=== PATIENT | female | born 1975 | race Caucasian/White ===

== ENCOUNTER 2016-12-16 06:21 | Emergency (ER) | payer OTHER ==
--- NOTE | ~2016-12-16 | CR230 ---
[facility] A Service of [facility] & [facility] RADIOLOGY TEXT RESULTS PATIENT: DARRICK MACARIO LOCATION: [facility] : 75 UNIT #: [id number] AGE: [address]: ELLIOT CAMACHO SEX: F ORDER DR: [id number] [facility] [address] [place], [place] [address] [id number] E MR#: [id number] Acc #: [id number] NAME: DARRICK MACARIO : 1975 SEX: F STUDY DATE/TIME: 12/16/2016 6:11 UNIT: [facility] ROOM: STUDY DESCRIPTION: CR Shoulder Min 2 View Rt Attending Physician: Elliot Camacho Aprn Ordering Physician: Elliot Camacho Aprn Primary Care Physician: No Primary Care Physician MEDICAL IMAGING REPORT This report is preliminary unless electronic signature is present EXAM Right shoulder, 12/16/2016 HISTORY Right shoulder pain status post fall down stairs today. COMPARISON STUDIES None. FINDINGS Three views right shoulder demonstrate no acute fracture or dislocation. Questionable small subacromial spur. Soft tissues are unremarkable. IMPRESSION No acute fracture or dislocation Dictated by... Timmy Phelps M.D. THIS IS AN ELECTRONICALLY VERIFIED REPORT Timmy Phelps M.D. at 12/17/2016 8:12 AM Donna TD: 12/17/2016 00:26 JOB #: [id number] MEDICAL IMAGING REPORT Page 1 of 1 COPY
--- NOTE | ~2016-12-16 | CR181 ---
[facility] A Service of [facility] RADIOLOGY TEXT RESULTS PATIENT: DARRICK MACARIO LOCATION: [facility] : 75 UNIT #: [id number] AGE: [address]: ELLIOT CAMACHO SEX: F ORDER DR: [id number] [facility] [address] [place], [place] [address] [id number] E MR#: [id number] Acc #: [id number] NAME: DARRICK MACARIO. : 1975 SEX: F STUDY DATE/TIME: 12/16/2016 6:15 UNIT: [facility] ROOM: STUDY DESCRIPTION: CR Lumbar Spine 2 or 3 Views Attending Physician: Elliot Camacho Aprn Ordering Physician: Elliot Camacho Aprn Primary Care Physician: No Primary Care Physician MEDICAL IMAGING REPORT This report is preliminary unless electronic signature is present EXAM Lumbar spine 12/16/2016 HISTORY Low back pain status post fall down stairs today. COMPARISON STUDIES None. FINDINGS Three views of the lumbar spine demonstrate no acute fracture. There is grade 2 anterolisthesis of L5 on S1, likely secondary to bilateral pars defects. Vertebral body heights and alignment are otherwise maintained. There is moderate disc space narrowing L5-S1. Remaining disc spaces within normal limits. Mild multilevel facet degeneration. Sacrum and SI joints intact. IMPRESSION 1. No acute lumbar spine injury. 2. Grade 2 anterolisthesis L5 on S1, likely secondary to bilateral L5 pars defects. Moderate disc space narrowing L5-S1. Dictated by... Timmy Phelps M.D. THIS IS AN ELECTRONICALLY VERIFIED REPORT Timmy Phelps M.D. at 12/17/2016 8:12 AM JAVIER/viola TD: 12/17/2016 00:28 JOB #: [id number] [facility] A Service [facility] RADIOLOGY TEXT RESULTS PATIENT: DARRICK MACARIO LOCATION: [facility] : 75 UNIT #: [id number] AGE: [address]: ELLIOT CAMACHO SEX: F ORDER DR: MEDICAL IMAGING REPORT Page 1 of 1 COPY
--- NOTE | ~2016-12-16 | CR172 ---
[facility] A Service of [facility] & [facility] RADIOLOGY TEXT RESULTS PATIENT: DARRICK MACARIO LOCATION: [facility] : 75 UNIT #: [id number] AGE: [address]: ELLIOT CAMACHO SEX: F ORDER DR: [id number] [facility] [address] [place], [place] [address] [id number] E MR#: [id number] Acc #: [id number] NAME: DARRICK MACARIO : 1975 SEX: F STUDY DATE/TIME: 12/16/2016 6:08 UNIT: [facility] ROOM: STUDY DESCRIPTION: CR Knee 3 Views Lt Attending Physician: Elliot Camacho Aprn Ordering Physician: Elliot Camacho Aprn Primary Care Physician: No Primary Care Physician MEDICAL IMAGING REPORT This report is preliminary unless electronic signature is present EXAM Left knee 12/16/2016 HISTORY Left knee pain status post fall down stairs today. COMPARISON None. FINDINGS 3 views of the left knee demonstrate no acute fracture or dislocation. No significant joint effusion. Joint spaces are within normal limits. Soft tissues unremarkable. IMPRESSION Unremarkable left knee Dictated by... Timmy Phelps M.D. THIS IS AN ELECTRONICALLY VERIFIED REPORT Timmy Phelps M.D. at 12/17/2016 8:12 AM JAVIER/vahe TD: 12/17/2016 00:42 JOB #: [id number] MEDICAL IMAGING REPORT Page 1 of 1 COPY
--- NOTE | ~2016-12-16 | CR151 ---
[facility] A Service of [facility] & [facility] RADIOLOGY TEXT RESULTS PATIENT: DARRICK MACARIO LOCATION: [facility] : 75 UNIT #: [id number] AGE: [address]: ELLIOT CAMACHO SEX: F ORDER DR: [id number] [facility] [address] [place], [place] [address] [id number] E MR#: [id number] Acc #: [id number] NAME: DARRICK MACARIO : 1975 SEX: F STUDY DATE/TIME: 12/16/2016 6:13 UNIT: [facility] ROOM: STUDY DESCRIPTION: CR Hip Min 2 Views Rt Attending Physician: Elliot Camacho Aprn Ordering Physician: Elliot Camacho Aprn Primary Care Physician: No Primary Care Physician MEDICAL IMAGING REPORT This report is preliminary unless electronic signature is present EXAM Right hip 12/16/2016 HISTORY Right hip pain status post fall down stairs today. COMPARISON None. FINDINGS 2 views right hip demonstrate no acute fracture or dislocation. Bony pelvis appears intact. Sacrum and SI joints intact. IMPRESSION Unremarkable right hip Dictated by... Timmy Phelps M.D. THIS IS AN ELECTRONICALLY VERIFIED REPORT Timmy Phelps M.D. at 12/17/2016 8:12 AM Donna TD: 12/17/2016 00:27 JOB #: [id number] MEDICAL IMAGING REPORT Page 1 of 1 COPY
--- NOTE | ~2016-12-16 | CR126 ---
[facility] A Service of [facility] & [facility] RADIOLOGY TEXT RESULTS PATIENT: DARRICK MACARIO LOCATION: [facility] : 75 UNIT #: [id number] AGE: [address]: ELLIOT CAMACHO SEX: F ORDER DR: [id number] [facility] [address] [place], [place] [address] [id number] E MR#: [id number] Acc #: [id number] NAME: DARRICK MACARIO : 1975 SEX: F STUDY DATE/TIME: 12/16/2016 6:06 UNIT: [facility] ROOM: STUDY DESCRIPTION: CR Foot Complete Min 3 View Lt Attending Physician: Elliot Camacho Aprn Ordering Physician: Elliot Camacho Aprn Primary Care Physician: No Primary Care Physician MEDICAL IMAGING REPORT This report is preliminary unless electronic signature is present EXAM Left foot 12/16/2016 HISTORY Left foot pain status post fall down stairs today. COMPARISON Left ankle same date. FINDINGS 3 views of the left foot demonstrate no acute fracture or dislocation. Soft tissues are unremarkable. IMPRESSION Unremarkable left foot. Dictated by... Timmy Phelps M.D. THIS IS AN ELECTRONICALLY VERIFIED REPORT Timmy Phelps M.D. at 12/17/2016 8:12 AM Donna TD: 12/17/2016 00:25 JOB #: [id number] MEDICAL IMAGING REPORT Page 1 of 1 COPY
--- NOTE | ~2016-12-16 | CR20 ---
[facility] A Service of [facility] & [facility] RADIOLOGY TEXT RESULTS PATIENT: DARRICK MACARIO LOCATION: [facility] : 75 UNIT #: [id number] AGE: [address]: ELLIOT CAMACHO SEX: F ORDER DR: [id number] [facility] [address] [place], [place] [address] [id number] E MR#: [id number] Acc #: [id number] NAME: DARRICK MACARIO : 1975 SEX: F STUDY DATE/TIME: 12/16/2016 6:05 UNIT: [facility] ROOM: STUDY DESCRIPTION: CR Ankle Min 3 Views Lt Attending Physician: Elliot Camacho Aprn Ordering Physician: Elliot Camacho Aprn Primary Care Physician: No Primary Care Physician MEDICAL IMAGING REPORT This report is preliminary unless electronic signature is present EXAM Left ankle 12/16/2016 HISTORY 40-year-old female with left ankle pain status post fall down steps today. COMPARISON None. FINDINGS 3 views of the left ankle demonstrate no acute fracture or dislocation. Ankle mortise symmetric. Talar dome intact. No ankle effusion. Soft tissues are unremarkable. IMPRESSION Unremarkable left ankle Dictated by... Timmy Phelps M.D. THIS IS AN ELECTRONICALLY VERIFIED REPORT Timmy Phelps M.D. at 12/17/2016 8:12 AM JAVIER/vahe TD: 12/17/2016 00:41 JOB #: [id number] MEDICAL IMAGING REPORT Page 1 of 1 COPY
[~2016-12-16 06:21] MED LIST: AUGMENTIN PO; BACITRACIN15 GM OINT EXT; BACTRIM 400-801 TA1 PO; FLEXERIL10 MG PO; KEFLEX500 MG PO; LORTAB 5/500 TA1 TA1 PO; MEDROL4 MG/DOSE- PO; VICODIN 5/1 TAB 5/50 PO
== END 2016-12-16 07:15 | disposition home or self-care (01) ==
LOC: CED 06:21
DX: S46.912A Strain of unspecified muscle, fascia and tendon at shoulder and upper arm level, left arm, initial encounter (principal); S86.912A Strain of unspecified muscle(s) and tendon(s) at lower leg level, left leg, initial encounter; S90.32XA Contusion of left foot, initial encounter; F17.210 Nicotine dependence, cigarettes, uncomplicated; Z91.040 Latex allergy status; W10.9XXA Fall (on) (from) unspecified stairs and steps, initial encounter; Y92.9 Unspecified place or not applicable
CPT/HCPCS: 29530; 29540; 72100; 73030; 73502; 73562; 73610; 73630; 99284

== ENCOUNTER 2017-01-10 05:50 | Emergency (ER) | payer OTHER | END 2017-01-10 06:58 | disposition home or self-care (01) | LOC: CED 05:50 | DX: K08.89 Other specified disorders of teeth and supporting structures (principal); F17.210 Nicotine dependence, cigarettes, uncomplicated; Z91.040 Latex allergy status | CPT/HCPCS: 99282; J1885 ==